=== PATIENT | female | born 1995 | race American Indian/Alaskan Native ===

== ENCOUNTER 2019-10-04 00:27 | Emergency (ER) | payer OTHER ==
[2019-10-04 01:38] LABS: Bilirubin,Urine NEG (Negative); Blood,Urine NEG (Negative); Color,Urine Yellow (Yellow); Mucus,Urine 1+ /HPF; Protein,Urine <15 mg/dL mg/dL (Negative); Urobilinogen,Urine < 2.0 mg/dL (<2.0)
[2019-10-04 01:40] LABS: HCG Qualitative,Urine Negative (Negative)
--- NOTE | 2019-10-04 02:53 | Emergency Department Report ---
ED General Adult HPI - General Chief complaint: Abdominal Pain Stated complaint: VAGINAL/ABD PAIN Time Seen by Provider: 10/04/19 01:07 Source: patient Mode of arrival: Ambulatory Limitations: No Limitations - History of Present Illness Initial comments: 24-year-old -[place] female patient without significant past medical history complains of 3 days of vaginal discharge and lower abdominal cramping. She denies any stool changes, nausea/vomiting, vaginal bleeding, hematuria, or dyspareunia. She states the discharge is white in color and also admits to dysuria. She states her vaginal area harrington with urination he denies any current lower abdominal pain -: Sudden Radiation: abdomen Severity scale (0 -10): 4 Consistency: intermittent Associated Symptoms: denies other symptoms Treatments Prior to Arrival: none - Related Data Previous Rx's Medication Instructions Recorded Last Taken Type Fluconazole [Diflucan TAB] 150 mg PO ONCE #1 tablet 10/04/19 Unknown Rx Allergies Allergy/AdvReac Type Severity Reaction Status Date / Time No Known Allergies Allergy Unverified 12/02/13 15:12 ED Review of Systems ROS: Stated complaint: VAGINAL/ABD PAIN Other details as noted in HPI Comment: All other systems reviewed and negative Gastrointestinal: abdominal pain Genitourinary: as per HPI, dysuria, discharge. denies: urgency, frequency, hematuria, abnormal menses, dyspareunia ED Past Medical Hx - Past Medical History Previous Medical History?: No Hx Psychiatric Treatment: No - Surgical History Past Surgical History?: No - Social History Smoking Status: Never Smoker Substance Use Type: None - Medications Home Medications: Home Medications Medication Instructions Recorded Confirmed Last Taken Type Fluconazole [Diflucan TAB] 150 mg PO ONCE #1 tablet 10/04/19 Unknown Rx ED Physical Exam - General Limitations: No Limitations General appearance: alert, in no apparent distress - Head Head exam: Present: atraumatic, normocephalic - Eye Eye exam: Present: normal appearance - Neck Neck exam: Present: full ROM - Respiratory Respiratory exam: Present: normal lung sounds bilaterally. Absent: respiratory distress - Cardiovascular Cardiovascular Exam: Present: regular rate, normal rhythm. Absent: systolic murmur, diastolic murmur, rubs, gallop - GI/Abdominal GI/Abdominal exam: Present: soft, normal bowel sounds. Absent: distended, tenderness, guarding, rebound, rigid - External exam: Absent: lesions, bleeding Speculum exam: Present: erythema (mild erythema and bumpy rash noted to outer portion of the opening of the vaginal canal with chunky white discharge surrounding), vaginal discharge, cervical discharge. Absent: vaginal bleeding Bi-manual exam: Absent: cervical motion tendernes - Back Exam Back exam: Present: full ROM - Neurological Exam Neurological exam: Present: alert, oriented X3 - Psychiatric Psychiatric exam: Present: normal affect, agitated - Skin Skin exam: Present: warm, dry, intact, normal color. Absent: rash ED Course Vital Signs 10/04/19 10/04/19 00:32 05:07 Temperature 98.9 F 98.0 F Pulse Rate 92 H 72 Respiratory 18 18 Rate Blood Pressure 137/81 Blood Pressure 119/65 [Left] O2 Sat by Pulse 98 100 Oximetry ED Medical Decision Making - Lab Data Lab Results 10/04/19 Range/Units Unknown Urine Color Yellow (Yellow) Urine Turbidity Clear (Clear) Urine pH 6.0 (5.0-7.0) Ur Specific [place] 1.024 (1.003-1.030) Urine Protein <15 mg/dl (Negative) mg/dL Urine Glucose (UA) Neg (Negative) mg/dL Urine Ketones Neg (Negative) mg/dL Urine Blood Neg (Negative) Urine Nitrite Neg (Negative) Urine Bilirubin Neg (Negative) Urine Urobilinogen < 2.0 (<2.0) mg/dL Ur Leukocyte Esterase Neg (Negative) Urine WBC (Auto) 1.0 (0.0-6.0) /HPF Urine RBC (Auto) 2.0 (0.0-6.0) /HPF U Epithel Cells (Auto) 2.0 (0-13.0) /HPF Urine Mucus 1+ /HPF Urine HCG, Qual Negative (Negative) - Medical Decision Making Patient here with complaints of lower pelvic pain and vaginal discharge. Moderate vaginal discharge noted on exam. No cervical motion tenderness noted. Wet prep is negative. We'll treat empirically for gonorrhea and chlamydia. Patient informed to encourage her partner to get tested and treated also and to refrain from sexual activity for at least 2-3 weeks. Recommend follow-up with primary care. Discussed strict return precautions in detail with patient who states understanding. Critical care attestation.: If time is entered above; I have spent that time in minutes in the direct care of this critically ill patient, excluding procedure time. ED Disposition Clinical Impression: Vaginal discharge Disposition: DC-01 TO HOME OR SELFCARE Is pt being admited?: No Condition: Stable Instructions: Sexually Transmitted Diseases (ED) Prescriptions: Fluconazole [Diflucan TAB] 150 mg PO ONCE #1 tablet Referrals: ROSALIA SANCHEZ MD [Referring] - 3-5 Days
[2019-10-04] MEDS ORDERED: AZITHROMYCIN 1 GM ORAL PWDR PACKET PO ONE (03:49)
[2019-10-04] MEDS ORDERED: LIDOCAINE-MPF (1%) 10 MG/1 ML VIAL 5 ML INFILTRATI ONE (03:49)
[2019-10-04 05:17] VITALS: BP 119/65
== END 2019-10-04 05:09 | disposition home or self-care (01) ==
LOC: ED 00:27
DX: N89.8 Other specified noninflammatory disorders of vagina (principal); Z79.899 Other long term (current) drug therapy
CPT/HCPCS: 81001; 81025; 87210; 87591; 96372; 99284; J0696

== ENCOUNTER 2020-04-09 07:06 | Emergency (ER) | payer OTHER ==
[2020-04-09 07:16] VITALS: BP 111/63
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
== END 2020-04-09 09:50 | disposition home or self-care (01) ==
LOC: ED 07:06
DX: T74.21XA Adult sexual abuse, confirmed, initial encounter (principal); Y92.89 Other specified places as the place of occurrence of the external cause
CPT/HCPCS: 87210; 87591

== ENCOUNTER 2021-10-25 10:00 | Emergency (ER) | payer BC, OTHER ==
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
[2021-10-25] MEDS ORDERED: LIDOCAINE-MPF (1%) 10 MG/1 ML VIAL 5 ML INFILTRATI ONE (12:15)
[2021-10-25 12:16] LABS: Bilirubin,Urine NEG (Negative); Blood,Urine NEG (Negative); Color,Urine Straw (Yellow); HCG Qualitative,Urine Negative (Negative); Protein,Urine <15 mg/dL mg/dL (Negative); Urobilinogen,Urine < 2.0 mg/dL (<2.0)
[2021-10-25 13:33] VITALS: BP 130/82
== END 2021-10-25 13:32 | disposition home or self-care (01) ==
LOC: ED 10:00
DX: N76.0 Acute vaginitis (principal); B96.89 Other specified bacterial agents as the cause of diseases classified elsewhere; Z79.899 Other long term (current) drug therapy
CPT/HCPCS: 81001; 81025; 87210; 96372; 99284; J0696; J3490

== ENCOUNTER 2021-11-23 05:27 | Emergency (ER) | payer SELFPAY ==
--- NOTE | 2021-11-23 07:01 | XRay Report ---
CHEST 2 VIEWS INDICATION: chest pain. COMPARISON: None FINDINGS: SUPPORT DEVICES: None. HEART: Within normal limits. LUNGS/PLEURA: No acute air space or interstitial disease. No pneumothorax. ADDITIONAL FINDINGS: None. IMPRESSION: 1. No acute findings. Signer Name: Raad Kirby MD Signed: 11/23/2021 6:57 AM Workstation Name: [id number]
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
[2021-11-23 07:47] VITALS: BP 125/75
== END 2021-11-23 07:47 | disposition home or self-care (01) ==
LOC: ED 05:27
DX: R07.89 Other chest pain (principal); M79.662 Pain in left lower leg; M79.661 Pain in right lower leg; Z72.89 Other problems related to lifestyle; V89.2XXA Person injured in unspecified motor-vehicle accident, traffic, initial encounter; Y93.89 Activity, other specified; Y92.488 Other paved roadways as the place of occurrence of the external cause; Y99.8 Other external cause status
CPT/HCPCS: 71046; 99283